=== PATIENT | female | born 1970 | race Caucasian/White ===

== ENCOUNTER 2017-07-12 15:59 | Inpatient (IN) | payer MEDICAID, OTHER ==
[~2017-07-12] VITALS: Ht 175.3 cm; Wt 92.5 kg
[2017-07-12] MEDS ORDERED: SODIUM CHLORIDE 0.9% 1,000 ML IV ONE ×2 (16:08)
[2017-07-12 16:55] LABS: Basophils # (auto) 0.1 uL; Basophils % (auto) 0.8 % (0.0-2.0); Eosinophils # (auto) 0.3 uL; Eosinophils % (auto) 3.4 % (0.0-7.0); Hematocrit 34.8 % (36.0-46.0); Hemoglobin 11.6 g/dL (12.2-16.2); Lymphocytes # (auto) 1.1 uL; Lymphocytes % (auto) 12.4 % (10.0-50.0); Mean Corpuscular Hemoglobin 30.5 pg (28.0-32.0); Mean Corpuscular Hgb Conc. 33.3 g/dL (32.0-36.0); Mean Corpuscular Volume 91.4 fL (80.0-100.0); Monocytes # (auto) 0.7 uL; Monocytes % (auto) 7.1 % (0.0-12.0); Neutrophils % (auto) 76.3 % (37.0-80.0); Platelet Count (auto) 399 10^3/uL (140-450); Red Blood Cells 3.81 10^6/uL (4.0-5.20); Red Cell Distribution Width 13.6 % (11.8-14.3); White Blood Cell 9.2 10^3/uL (4.4-10.8)
[2017-07-12 16:56] LABS: INR 1.34 (0.9-1.15); Partial Thromboplastin Time 33.9 sec (22.64-33.71); Prothrombin Time 14.6 sec (9.37-12.3)
[2017-07-12 17:00] LABS: Alanine Aminotransferase 31 U/L (13-56); Albumin 2.6 g/dL (3.4-5.0); Alkaline Phosphatase 150 U/L (45-117); Anion Gap 7 (5-15); Aspartate Aminotransferase 14 U/L (15-37); BUN/Creatinine Ratio 11.1; Bilirubin, Total 0.3 mg/dL (0.2-1.0); Blood Urea Nitrogen 9 mg/dL (7-18); Calcium 7.9 mg/dL (8.5-10.1); Carbon Dioxide 23 mmol/L (21-32); Chloride 108 mmol/L (98-107); GFR African American 97 mL/min; GFR Non-African American 81 mL/min; Glucose 113 mg/dL (74-106); Potassium 3.4 mmol/L (3.5-5.1); Sodium 138 mmol/L (136-145); Total Protein 6.5 g/dL (6.4-8.2)
[2017-07-12] MEDS ORDERED: KETOROLAC TROMETH 30 MG/ML 1ML VIAL IV ONE (19:30)
[2017-07-12] MEDS ORDERED: ACETAMINOPHEN 500 MG TAB PO PRN (21:15)
[2017-07-12] MEDS ORDERED: ONDANSETRON HCL 4 MG/2 ML VIAL IV PRN (21:15)
[2017-07-12] MEDS ORDERED: WARFARIN SODIUM 5 MG TAB PO ONE (21:45)
[2017-07-12] MEDS: HYDROcodone-ACET 5/325MG TAB PO PRN (21:58)
[2017-07-12] MEDS: TOPIRAMATE 100 MG TAB PO SCH (22:03)
[2017-07-12] MEDS ORDERED: POTASSIUM CHL 20 Meq TABLET PO ONE (23:30)
[2017-07-13] VITALS (15 sets, daily range): BP systolic 100–129; BP diastolic 52–93
[2017-07-13] MEDS: HYDROcodone-ACET 5/325MG TAB PO PRN ×5 (02:06→20:18)
[2017-07-13] MEDS ORDERED: PNEUMOCOCCAL VACC POLYS 25 MCG/0.5 ML VIAL IM ONE (03:00)
[2017-07-13 06:23] LABS: Basophils # (auto) 0 uL; Basophils % (auto) 0.5 % (0.0-2.0); Eosinophils # (auto) 0.5 uL; Eosinophils % (auto) 6.5 % (0.0-7.0); Hematocrit 32.8 % (36.0-46.0); Hemoglobin 10.9 g/dL (12.2-16.2); Lymphocytes # (auto) 1.2 uL; Lymphocytes % (auto) 15.3 % (10.0-50.0); Mean Corpuscular Hemoglobin 30.8 pg (28.0-32.0); Mean Corpuscular Hgb Conc. 33.1 g/dL (32.0-36.0); Mean Corpuscular Volume 93.1 fL (80.0-100.0); Monocytes # (auto) 0.5 uL; Monocytes % (auto) 6.9 % (0.0-12.0); Neutrophils # (auto) 5.3 uL; Neutrophils % (auto) 70.8 % (37.0-80.0); Nucleated Red Blood Cells % 0.1 %; Platelet Count (auto) 368 10^3/uL (140-450); Red Blood Cells 3.53 10^6/uL (4.0-5.20); Red Cell Distribution Width 13.8 % (11.8-14.3); White Blood Cell 7.5 10^3/uL (4.4-10.8)
[2017-07-13 06:45] LABS: BUN/Creatinine Ratio 19.4; Calcium 7.9 mg/dL (8.5-10.1); Potassium 3.8 mmol/L (3.5-5.1)
[2017-07-13 06:47] LABS: INR 1.36 (0.9-1.15); Prothrombin Time 14.9 sec (9.37-12.3)
[2017-07-13] MEDS: TOPIRAMATE 25 MG TAB PO SCH (08:51)
[2017-07-13] MEDS ORDERED: ALBUAER3 IN (09:36)
[2017-07-13] MEDS ORDERED: CYCL1TAB18 PO ×3 (09:36→16:14)
[2017-07-13] MEDS ORDERED: MELA3TAB27 PO (09:38)
[2017-07-13] MEDS ORDERED: GABA-339 PO (09:38)
[2017-07-13] MEDS ORDERED: TERB250T37 PO (09:38)
[2017-07-13] MEDS ORDERED: TOPI50TA53 PO (09:40)
[2017-07-13] MEDS ORDERED: TOPI100T68 PO (09:40)
[2017-07-13] MEDS ORDERED: ENOXAPARIN SOD 100 MG/1 ML SYRINGE SC SCH (11:00)
[2017-07-13] MEDS ORDERED: HEPARIN SODIUM (PORCINE) 5000 UNITS/ML 1ML VIAL IV ONE (11:00)
[2017-07-13] MEDS ORDERED: HEPARIN DRIP/D5W 100UNITS/ML 250 ML IV SCH ×3 (11:15→16:15)
[2017-07-13] MEDS ORDERED: LIDOCAINE 2%HCL (LOCAL ANESTH.) INJ 20ML MDV ONE ×2 (12:32→14:29)
[2017-07-13] MEDS ORDERED: IOHEXOL 350 MG/ML 100ML IJ ONE (12:32)
[2017-07-13] MEDS ORDERED: CATHFLO ACTIVASE (ALTEPLASE) 2 MG VIAL IV ONE (12:45)
[2017-07-13] MEDS ORDERED: fentaNYL CITRATE 100 MCG/2 ML VL ONE ×2 (13:13→14:25)
[2017-07-13] MEDS ORDERED: MIDAZOLAM HCL 1MG/1ML-2 ML VIAL ONE (13:14)
[2017-07-13] MEDS ORDERED: ALTEPLASE (RECOMBINANT) 100 MG in STERILE WATER 100 ML IV ONE (15:00)
[2017-07-13] MEDS ORDERED: CYCLOBENZAPRINE HCL 10 MG TAB PO PRN (16:00)
[2017-07-13] MEDS ORDERED: ALBUTEROL SULF 2.5 MG/0.5ML(0.5%) NEB SOLN NEB PRN (16:15)
[2017-07-13 16:33] LABS: Basophils # (auto) 0 uL; Basophils % (auto) 0.7 % (0.0-2.0); Eosinophils # (auto) 0.4 uL; Eosinophils % (auto) 5.7 % (0.0-7.0); Hematocrit 33.6 % (36.0-46.0); Hemoglobin 11.1 g/dL (12.2-16.2); Mean Corpuscular Hemoglobin 30.6 pg (28.0-32.0); Mean Corpuscular Hgb Conc. 32.9 g/dL (32.0-36.0); Monocytes # (auto) 0.4 uL; Monocytes % (auto) 5.2 % (0.0-12.0); Neutrophils # (auto) 5.1 uL; Neutrophils % (auto) 74.4 % (37.0-80.0); Platelet Count (auto) 397 10^3/uL (140-450); Red Blood Cells 3.62 10^6/uL (4.0-5.20); Red Cell Distribution Width 13.6 % (11.8-14.3); White Blood Cell 6.8 10^3/uL (4.4-10.8)
[2017-07-13] MEDS ORDERED: WARFARIN SODIUM 10 MG TAB PO ONE (17:00)
[2017-07-13 17:44] LABS: INR 1.61 (0.9-1.15); Partial Thromboplastin Time 37.8 sec (22.64-33.71); Prothrombin Time 17.6 sec (9.37-12.3)
[2017-07-13] MEDS ORDERED: PATIENTS OWN MEDICATION (Albuterol Sulfate (Ventolin Mdi) 90 MCG) IN SCH (18:00)
[2017-07-13] MEDS: MORPHINE SULFATE 10 MG/ML INJ 1ML SDV IV PRN ×2 (18:34→22:25)
[2017-07-13 21:02] LABS: INR 1.65 (0.9-1.15); Partial Thromboplastin Time 32.1 sec (22.64-33.71); Prothrombin Time 18.1 sec (9.37-12.3)
[2017-07-13] MEDS ORDERED: PATIENTS OWN MEDICATION (Gabapentin 1,200 MG) PO SCH (22:00)
[2017-07-13] MEDS: GABAPENTIN 400 MG CAP PO SCH (22:26)
[2017-07-13] MEDS: TOPIRAMATE 100 MG TAB PO SCH (22:26)
[2017-07-14] VITALS (39 sets, daily range): BP systolic 96–141; BP diastolic 51–87
[2017-07-14 00:37] LABS: Basophils # (auto) 0 uL; Basophils % (auto) 0.3 % (0.0-2.0); Eosinophils # (auto) 0.4 uL; Eosinophils % (auto) 3.5 % (0.0-7.0); Hemoglobin 11.3 g/dL (12.2-16.2); Lymphocytes # (auto) 0.9 uL; Lymphocytes % (auto) 8.7 % (10.0-50.0); Mean Corpuscular Hemoglobin 31.5 pg (28.0-32.0); Mean Corpuscular Hgb Conc. 34.3 g/dL (32.0-36.0); Mean Corpuscular Volume 91.9 fL (80.0-100.0); Monocytes # (auto) 0.6 uL; Monocytes % (auto) 5.7 % (0.0-12.0); Neutrophils # (auto) 8.6 uL; Neutrophils % (auto) 81.8 % (37.0-80.0); Platelet Count (auto) 365 10^3/uL (140-450); Red Blood Cells 3.59 10^6/uL (4.0-5.20); Red Cell Distribution Width 13.6 % (11.8-14.3); White Blood Cell 10.6 10^3/uL (4.4-10.8)
[2017-07-14 00:53] LABS: INR 2.46 (0.9-1.15); Partial Thromboplastin Time 49.5 sec (22.64-33.71); Prothrombin Time 27.1 sec (9.37-12.3)
[2017-07-14] MEDS: MORPHINE SULFATE 10 MG/ML INJ 1ML SDV IV PRN ×5 (04:15→21:21)
[2017-07-14] MEDS: GABAPENTIN 400 MG CAP PO SCH ×4 (05:46→23:08)
[2017-07-14 07:55] LABS: Basophils # (auto) 0 uL; Basophils % (auto) 0.3 % (0.0-2.0); Eosinophils # (auto) 0.4 uL; Hematocrit 33.5 % (36.0-46.0); Hemoglobin 11.4 g/dL (12.2-16.2); Lymphocytes # (auto) 1.1 uL; Mean Corpuscular Hemoglobin 31.1 pg (28.0-32.0); Mean Corpuscular Hgb Conc. 34.1 g/dL (32.0-36.0); Mean Corpuscular Volume 91.3 fL (80.0-100.0); Monocytes # (auto) 0.6 uL; Neutrophils # (auto) 6.7 uL; Neutrophils % (auto) 75.7 % (37.0-80.0); Platelet Count (auto) 353 10^3/uL (140-450); Red Blood Cells 3.67 10^6/uL (4.0-5.20); Red Cell Distribution Width 13.7 % (11.8-14.3); White Blood Cell 8.8 10^3/uL (4.4-10.8)
[2017-07-14 08:13] LABS: BUN/Creatinine Ratio 14.1; Calcium 7.7 mg/dL (8.5-10.1); Magnesium 2.4 mg/dL (1.6-2.6); Phosphorus 3.7 mg/dL (2.5-4.90); Potassium 3.9 mmol/L (3.5-5.1)
[2017-07-14 08:16] LABS: INR 2.43 (0.9-1.15); Prothrombin Time 26.7 sec (9.37-12.3)
[2017-07-14] MEDS: TOPIRAMATE 25 MG TAB PO SCH (09:11)
[2017-07-14] MEDS ORDERED: TOPIRAMATE 100 MG TAB PO SCH (10:00)
[2017-07-14 12:31] LABS: INR 2.53 (0.9-1.15); Partial Thromboplastin Time 42.2 sec (22.64-33.71); Prothrombin Time 27.8 sec (9.37-12.3)
[2017-07-14] MEDS ORDERED: IOHEXOL 350 MG/ML 100ML IJ ONE (14:42)
[2017-07-14] MEDS ORDERED: LIDOCAINE 2%HCL (LOCAL ANESTH.) INJ 20ML MDV ONE (14:42)
[2017-07-14] MEDS ORDERED: fentaNYL CITRATE 100 MCG/2 ML VL ONE (15:00)
[2017-07-14] MEDS ORDERED: MIDAZOLAM HCL 1MG/1ML-2 ML VIAL ONE (15:00)
[2017-07-14] MEDS ORDERED: CATHFLO ACTIVASE (ALTEPLASE) 2 MG VIAL IV ONE (15:22)
[2017-07-14 19:35] LABS: INR 2.23 (0.9-1.15); Partial Thromboplastin Time 47.4 sec (22.64-33.71); Prothrombin Time 24.5 sec (9.37-12.3)
[2017-07-14] MEDS ORDERED: HEPARIN DRIP/D5W 100UNITS/ML 250 ML IV SCH ×3 (21:00)
[2017-07-14] MEDS: TOPIRAMATE 100 MG TAB PO SCH (23:08)
[2017-07-15] VITALS (41 sets, daily range): BP systolic 99–150; BP diastolic 49–102
[2017-07-15] MEDS: MORPHINE SULFATE 10 MG/ML INJ 1ML SDV IV PRN ×6 (01:00→21:15)
[2017-07-15 03:42] LABS: Basophils # (auto) 0 uL; Basophils % (auto) 0.5 % (0.0-2.0); Eosinophils # (auto) 0.6 uL; Eosinophils % (auto) 6.8 % (0.0-7.0); Hematocrit 32.6 % (36.0-46.0); Lymphocytes # (auto) 1.7 uL; Lymphocytes % (auto) 19.8 % (10.0-50.0); Mean Corpuscular Hgb Conc. 33.8 g/dL (32.0-36.0); Mean Corpuscular Volume 91.7 fL (80.0-100.0); Monocytes # (auto) 0.6 uL; Monocytes % (auto) 7.3 % (0.0-12.0); Neutrophils # (auto) 5.5 uL; Neutrophils % (auto) 65.6 % (37.0-80.0); Nucleated Red Blood Cells % 0.1 %; Platelet Count (auto) 347 10^3/uL (140-450); Red Blood Cells 3.55 10^6/uL (4.0-5.20); Red Cell Distribution Width 13.6 % (11.8-14.3); White Blood Cell 8.4 10^3/uL (4.4-10.8)
[2017-07-15 03:57] LABS: INR 1.77 (0.9-1.15); Partial Thromboplastin Time 55.3 sec (22.64-33.71); Prothrombin Time 19.4 sec (9.37-12.3)
[2017-07-15 04:05] LABS: BUN/Creatinine Ratio 13.6; Calcium 8.1 mg/dL (8.5-10.1); Potassium 3.8 mmol/L (3.5-5.1)
[2017-07-15] MEDS: GABAPENTIN 400 MG CAP PO SCH ×3 (06:14→23:57)
[2017-07-15] MEDS: TOPIRAMATE 25 MG TAB PO SCH (09:00)
[2017-07-15] MEDS ORDERED: IOHEXOL 300 MG/ML 100ML BOTTLE IJ ONE (09:43)
[2017-07-15] MEDS: SODIUM CHLORIDE 0.9% 1,000 ML IV SCH ×2 (10:50→20:30)
[2017-07-15 10:55] LABS: INR 1.64 (0.9-1.15)
[2017-07-15] MEDS ORDERED: ALTEPLASE (RECOMBINANT) 100 MG in STERILE WATER 100 ML IV ONE (11:15)
[2017-07-15] MEDS ORDERED: HEPARIN DRIP/D5W 100UNITS/ML 250 ML IV SCH (11:15)
[2017-07-15] MEDS ORDERED: CATHFLO ACTIVASE (ALTEPLASE) 2 MG VIAL IV ONE (11:15)
[2017-07-15] MEDS ORDERED: CATHFLO IV ONE (14:00)
[2017-07-15] MEDS ORDERED: ALTEPLASE IV ONE (14:00)
[2017-07-15] MEDS ORDERED: SODIUM CHLORIDE 0.9% IV ONE (14:00)
[2017-07-15] MEDS ORDERED: fentaNYL CITRATE 100 MCG/2 ML VL ONE ×2 (14:21→16:09)
[2017-07-15] MEDS ORDERED: MIDAZOLAM HCL 1MG/1ML-2 ML VIAL ONE ×2 (14:22→16:36)
[2017-07-15] MEDS ORDERED: ceFAZolin 1GM/50ML 50 ML IV ONE (16:26)
[2017-07-15 18:54] LABS: INR 1.59 (0.9-1.15); Partial Thromboplastin Time 46.5 sec (22.64-33.71); Prothrombin Time 17.4 sec (9.37-12.3)
[2017-07-15] MEDS: HEPARIN DRIP/D5W 100UNITS/ML 250 ML IV SCH (20:00)
[2017-07-15] MEDS ORDERED: SENNA 8.6 MG TAB PO PRN (20:00)
[2017-07-15] MEDS: HYDROcodone-ACET 5/325MG TAB PO PRN (20:09)
[2017-07-15] MEDS: TOPIRAMATE 100 MG TAB PO SCH (22:33)
[2017-07-15] MEDS: DOCUSATE SOD 100 MG CAP PO SCH (22:33)
[2017-07-16] VITALS (36 sets, daily range): BP systolic 95–140; BP diastolic 46–91
[2017-07-16 01:04] LABS: INR 1.4 (0.9-1.15); Partial Thromboplastin Time 45.3 sec (22.64-33.71); Prothrombin Time 15.3 sec (9.37-12.3)
[2017-07-16] MEDS: MORPHINE SULFATE 10 MG/ML INJ 1ML SDV IV PRN ×5 (01:14→22:01)
[2017-07-16] MEDS: SODIUM CHLORIDE 0.9% 1,000 ML IV SCH ×3 (03:55→18:45)
[2017-07-16] MEDS: HYDROcodone-ACET 5/325MG TAB PO PRN ×4 (05:33→21:38)
[2017-07-16] MEDS: GABAPENTIN 400 MG CAP PO SCH ×3 (06:00→22:01)
[2017-07-16 06:32] LABS: Basophils # (auto) 0.1 uL; Basophils % (auto) 0.6 % (0.0-2.0); Eosinophils # (auto) 0.6 uL; Eosinophils % (auto) 5.7 % (0.0-7.0); Hematocrit 31.7 % (36.0-46.0); Hemoglobin 10.3 g/dL (12.2-16.2); Lymphocytes # (auto) 1.1 uL; Lymphocytes % (auto) 11.2 % (10.0-50.0); Mean Corpuscular Hgb Conc. 32.4 g/dL (32.0-36.0); Mean Corpuscular Volume 92.6 fL (80.0-100.0); Monocytes # (auto) 0.7 uL; Monocytes % (auto) 7.1 % (0.0-12.0); Neutrophils # (auto) 7.6 uL; Neutrophils % (auto) 75.4 % (37.0-80.0); Platelet Count (auto) 350 10^3/uL (140-450); Red Blood Cells 3.42 10^6/uL (4.0-5.20); Red Cell Distribution Width 13.7 % (11.8-14.3); White Blood Cell 10.1 10^3/uL (4.4-10.8)
[2017-07-16 06:46] LABS: BUN/Creatinine Ratio 15.8; Calcium 7.4 mg/dL (8.5-10.1); Magnesium 2.4 mg/dL (1.6-2.6); Phosphorus 4.8 mg/dL (2.5-4.90); Potassium 4.3 mmol/L (3.5-5.1)
[2017-07-16 06:59] LABS: INR 1.33 (0.9-1.15); Partial Thromboplastin Time 52.2 sec (22.64-33.71); Prothrombin Time 14.5 sec (9.37-12.3)
[2017-07-16] MEDS ORDERED: CATHFLO IV ONE ×2 (08:00→09:30)
[2017-07-16] MEDS ORDERED: ALTEPLASE IV ONE ×2 (08:00→09:30)
[2017-07-16] MEDS ORDERED: SODIUM CHLORIDE 0.9% IV ONE ×2 (08:00→09:30)
[2017-07-16] MEDS: DOCUSATE SOD 100 MG CAP PO SCH ×2 (09:47→22:01)
[2017-07-16] MEDS: TOPIRAMATE 25 MG TAB PO SCH (09:48)
[2017-07-16] MEDS: HEPARIN DRIP/D5W 100UNITS/ML 250 ML IV SCH (11:18)
[2017-07-16] MEDS ORDERED: LIDOCAINE 2%HCL (LOCAL ANESTH.) INJ 20ML MDV ONE (12:02)
[2017-07-16] MEDS ORDERED: IODIXANOL 320MG/ML 100ML BTL IV ONE (12:02)
[2017-07-16] MEDS ORDERED: fentaNYL CITRATE 100 MCG/2 ML VL ONE (12:34)
[2017-07-16 12:37] LABS: INR 1.34 (0.9-1.15); Prothrombin Time 14.7 sec (9.37-12.3)
[2017-07-16] MEDS ORDERED: CLOPIDOGREL BISULFATE 75 MG TAB PO ONE ×2 (14:00)
[2017-07-16] MEDS ORDERED: ASPirin 81 mg TAB PO ONE ×2 (14:00)
[2017-07-16] MEDS: RIVAROXABAN 15 MG TAB PO SCH (18:18)
[2017-07-16] MEDS: TOPIRAMATE 100 MG TAB PO SCH (22:01)
[2017-07-17] MEDS: MORPHINE SULFATE 10 MG/ML INJ 1ML SDV IV PRN ×7 (01:29→22:24)
[2017-07-17] MEDS: SODIUM CHLORIDE 0.9% 1,000 ML IV SCH ×3 (02:45→19:15)
[2017-07-17 05:00] VITALS: BP 123/73
[2017-07-17] MEDS: GABAPENTIN 400 MG CAP PO SCH ×3 (06:41→22:23)
[2017-07-17 07:56] VITALS: BP 109/75
[2017-07-17] MEDS: RIVAROXABAN 15 MG TAB PO SCH ×2 (08:09→18:08)
[2017-07-17 09:17] LABS: Basophils # (auto) 0.1 uL; Basophils % (auto) 0.9 % (0.0-2.0); Eosinophils # (auto) 0.7 uL; Eosinophils % (auto) 8.6 % (0.0-7.0); Hematocrit 31.8 % (36.0-46.0); Hemoglobin 10.6 g/dL (12.2-16.2); Lymphocytes # (auto) 1.2 uL; Lymphocytes % (auto) 14.4 % (10.0-50.0); Mean Corpuscular Hgb Conc. 33.3 g/dL (32.0-36.0); Mean Corpuscular Volume 93.2 fL (80.0-100.0); Monocytes # (auto) 0.5 uL; Monocytes % (auto) 5.4 % (0.0-12.0); Neutrophils % (auto) 70.7 % (37.0-80.0); Platelet Count (auto) 389 10^3/uL (140-450); Red Blood Cells 3.41 10^6/uL (4.0-5.20); White Blood Cell 8.5 10^3/uL (4.4-10.8)
[2017-07-17 09:40] LABS: BUN/Creatinine Ratio 13.1; Calcium 8.1 mg/dL (8.5-10.1); Potassium 4.1 mmol/L (3.5-5.1)
[2017-07-17] MEDS: CLOPIDOGREL BISULFATE 75 MG TAB PO SCH (10:12)
[2017-07-17] MEDS: TOPIRAMATE 25 MG TAB PO SCH (10:12)
[2017-07-17] MEDS: DOCUSATE SOD 100 MG CAP PO SCH ×2 (10:13→22:23)
[2017-07-17] MEDS: ASPirin 81 mg TAB PO SCH (10:13)
[2017-07-17 10:18] VITALS: BP 109/75
[2017-07-17 11:33] VITALS: BP 125/77
[2017-07-17 16:38] VITALS: BP 117/78
[2017-07-17] MEDS: HYDROcodone-ACET 5/325MG TAB PO PRN (21:03)
[2017-07-17 22:00] VITALS: BP 116/72
[2017-07-17] MEDS: TOPIRAMATE 100 MG TAB PO SCH (22:23)
[2017-07-18] MEDS: MORPHINE SULFATE 10 MG/ML INJ 1ML SDV IV PRN ×7 (01:44→22:38)
[2017-07-18] MEDS: SODIUM CHLORIDE 0.9% 1,000 ML IV SCH ×3 (02:21→18:09)
[2017-07-18] MEDS: HYDROcodone-ACET 5/325MG TAB PO PRN ×3 (03:48→20:16)
[2017-07-18 05:00] VITALS: BP 123/71
[2017-07-18] MEDS: GABAPENTIN 400 MG CAP PO SCH ×3 (07:29→21:44)
[2017-07-18 07:41] LABS: Basophils # (auto) 0.1 uL; Basophils % (auto) 0.7 % (0.0-2.0); Eosinophils # (auto) 0.7 uL; Eosinophils % (auto) 8.8 % (0.0-7.0); Hematocrit 29.4 % (36.0-46.0); Hemoglobin 9.8 g/dL (12.2-16.2); Lymphocytes # (auto) 1.3 uL; Lymphocytes % (auto) 16.8 % (10.0-50.0); Mean Corpuscular Hemoglobin 30.5 pg (28.0-32.0); Mean Corpuscular Hgb Conc. 33.2 g/dL (32.0-36.0); Mean Corpuscular Volume 91.8 fL (80.0-100.0); Monocytes # (auto) 0.5 uL; Monocytes % (auto) 6.1 % (0.0-12.0); Neutrophils # (auto) 5.2 uL; Neutrophils % (auto) 67.6 % (37.0-80.0); Platelet Count (auto) 412 10^3/uL (140-450); Red Blood Cells 3.21 10^6/uL (4.0-5.20); Red Cell Distribution Width 13.3 % (11.8-14.3); White Blood Cell 7.6 10^3/uL (4.4-10.8)
[2017-07-18 07:51] VITALS: BP 105/64
[2017-07-18 07:56] LABS: Calcium 8.2 mg/dL (8.5-10.1); Magnesium 2.4 mg/dL (1.6-2.6)
[2017-07-18 07:58] LABS: BUN/Creatinine Ratio 13.1
[2017-07-18] MEDS: TOPIRAMATE 25 MG TAB PO SCH (09:20)
[2017-07-18] MEDS: ASPirin 81 mg TAB PO SCH (09:20)
[2017-07-18] MEDS: RIVAROXABAN 15 MG TAB PO SCH ×2 (09:20→17:41)
[2017-07-18] MEDS: CLOPIDOGREL BISULFATE 75 MG TAB PO SCH (09:20)
[2017-07-18] MEDS: DOCUSATE SOD 100 MG CAP PO SCH ×2 (09:20→21:45)
[2017-07-18 11:35] VITALS: BP 134/81
[2017-07-18 16:12] VITALS: BP 117/78
[2017-07-18] MEDS: TOPIRAMATE 100 MG TAB PO SCH (21:45)
[2017-07-18 22:00] VITALS: BP 115/70
[2017-07-19] MEDS: HYDROcodone-ACET 5/325MG TAB PO PRN ×2 (00:51→07:07)
[2017-07-19] MEDS: SODIUM CHLORIDE 0.9% 1,000 ML IV SCH ×2 (02:45→10:45)
[2017-07-19] MEDS: MORPHINE SULFATE 10 MG/ML INJ 1ML SDV IV PRN ×2 (03:25→08:13)
[2017-07-19] MEDS: GABAPENTIN 400 MG CAP PO SCH (05:25)
[2017-07-19 06:00] VITALS: BP 122/81
[2017-07-19 06:45] LABS: Hemoglobin 11.1 g/dL (12.2-16.2); Lymphocytes # (auto) 1.5 uL; Monocytes # (auto) 0.6 uL; Platelet Count (auto) 513 10^3/uL (140-450)
[2017-07-19 06:55] LABS: Basophils # (auto) 0.1 uL; Basophils % (auto) 0.7 % (0.0-2.0); Eosinophils # (auto) 0.6 uL; Eosinophils % (auto) 7.5 % (0.0-7.0); Hematocrit 33.4 % (36.0-46.0); Mean Corpuscular Hemoglobin 30.4 pg (28.0-32.0); Mean Corpuscular Hgb Conc. 33.2 g/dL (32.0-36.0); Mean Corpuscular Volume 91.6 fL (80.0-100.0); Monocytes % (auto) 7.8 % (0.0-12.0); Neutrophils # (auto) 5.5 uL; Red Blood Cells 3.65 10^6/uL (4.0-5.20); Red Cell Distribution Width 13.8 % (11.8-14.3); White Blood Cell 8.3 10^3/uL (4.4-10.8)
[2017-07-19 07:01] LABS: BUN/Creatinine Ratio 14.3; Calcium 8.5 mg/dL (8.5-10.1); Magnesium 2.4 mg/dL (1.6-2.6); Potassium 3.9 mmol/L (3.5-5.1)
[2017-07-19 08:03] VITALS: BP 125/76
[2017-07-19] MEDS: RIVAROXABAN 15 MG TAB PO SCH (08:13)
[2017-07-19 09:08] VITALS: BP 125/76
[2017-07-19] MEDS: CLOPIDOGREL BISULFATE 75 MG TAB PO SCH (09:51)
[2017-07-19] MEDS: ASPirin 81 mg TAB PO SCH (09:51)
[2017-07-19] MEDS: DOCUSATE SOD 100 MG CAP PO SCH (09:51)
[2017-07-19] MEDS: TOPIRAMATE 25 MG TAB PO SCH (09:51)
[2017-07-19 11:59] VITALS: BP 125/54
== END 2017-07-19 11:55 | disposition home health service (06) | DRG 169 ==
LOC: EDBD 15:59 → ER 15:59 → TELE 16:00 → TELE-WESTW 07-13 01:40 → ICU WEST 07-13 16:32 → TELE-EAST 07-16 22:16
PROVIDERS: ADMIT Nurse Practitioner Family; ATTEND Internal Medicine
PROC: B51C1ZZ Fluoroscopy of Left Lower Extremity Veins using Low Osmolar Contrast (ICD-10-PCS; principal; 2017-07-15)
PROC: 04CD3ZZ Extirpation of Matter from Left Common Iliac Artery, Percutaneous Approach (ICD-10-PCS; 2017-07-15)
PROC: 047 Lower Arteries, Dilation (ICD-10-PCS; 2017-07-15)
PROC: 3E05317 Introduction of Other Thrombolytic into Peripheral Artery, Percutaneous Approach (ICD-10-PCS; 2017-07-15)
DX: I82.402 Acute embolism and thrombosis of unspecified deep veins of left lower extremity (principal); E66.01 Morbid (severe) obesity due to excess calories; E44.0 Moderate protein-calorie malnutrition; I87.1 Compression of vein; G62.9 Polyneuropathy, unspecified; G89.4 Chronic pain syndrome; K59.00 Constipation, unspecified; M47.814 Spondylosis without myelopathy or radiculopathy, thoracic region; M54.30 Sciatica, unspecified side; E87.6 Hypokalemia; D64.9 Anemia, unspecified; J45.909 Unspecified asthma, uncomplicated; R31.0 Gross hematuria; Z79.01 Long term (current) use of anticoagulants; Z79.02 Long term (current) use of antithrombotics/antiplatelets; Z79.82 Long term (current) use of aspirin; Z80.41 Family history of malignant neoplasm of ovary; Z80.8 Family history of malignant neoplasm of other organs or systems; Z86.718 Personal history of other venous thrombosis and embolism; Z90.49 Acquired absence of other specified parts of digestive tract; Z23 Encounter for immunization; Z68.30 Body mass index [BMI] 30.0-30.9, adult
CPT/HCPCS: 0238T; 36011; 37211; 37221; 37252; 96361; 96374; 99285; 36415; 71275; 74177; 75820; 76937; 80048; 80053; 83735; 84100; 84484; 85025; 85384; 85610; 85730; 87081; 93971; 97163; 99152; 99153; C1769; C1887; J0690; J1885; J2250; Q9967